=== PATIENT | male | born 2000 | race African-American/Black ===

== ENCOUNTER 2022-05-06 18:10 | Emergency (ER) | payer OTHER ==
[~2022-05-06] VITALS: Ht 175.3 cm; Wt 77.7 kg
[2022-05-06] MEDS ORDERED: ceFAZolin SOD 2 GM in IV 1 EA IV ONE (19:10)
[2022-05-06 20:05] LABS: BASO % 0.3 % (0.0-1.0); EOS # 0.2 10^3/uL (0.0-0.5); EOS % 3.8 % (0.0-3.0); HEMATOCRIT 44.7 % (42.0-52.0); HEMOGLOBIN 14.8 g/dl (13.5-17.5); LYMPH # 1.5 10^3/uL (1.5-5.0); LYMPH % 26.1 % (24.0-44.0); MEAN CORPUSCULAR HEMOGLOBIN 33.1 pg (27.0-33.0); MEAN CORPUSCULAR HGB CONC 33.1 g/dl (32.0-36.5); MONO # 0.5 10^3/uL (0.0-0.8); MONO % 8.6 % (2.0-8.0); NEUTROPHILS # 3.6 10^3/uL (1.5-8.5); PLATELET COUNT, AUTOMATED 302 10^3/uL (150-450); RED BLOOD COUNT 4.47 10^6/uL (4.30-6.10); WHITE BLOOD COUNT 5.8 10^3/uL (4.0-10.0)
[2022-05-06 20:24] LABS: ERYTHROCYTE SEDIMENTATION RATE 3 mm/hr (0-15)
[2022-05-06 20:40] LABS: RSV AMPLIFICATION NEGATIVE (NEGATIVE)
[2022-05-06 20:41] LABS: ALBUMIN 4.2 GM/DL (3.2-5.2); ALT/SGPT 33 U/L (12-78); BILIRUBIN,DIRECT 0.2 MG/DL (0.0-0.2); BILIRUBIN,TOTAL 0.6 MG/DL (0.2-1.0); BLOOD UREA NITROGEN 12 MG/DL (7-18); CALCIUM LEVEL 9.5 MG/DL (8.5-10.1); CARBON DIOXIDE LEVEL 30 MEQ/L (21-32); CHLORIDE LEVEL 105 MEQ/L (98-107); CREATININE FOR GFR 1.05 MG/DL (0.70-1.30); GLOMERULAR FILTRATION RATE > 60.0 (>60); GLUCOSE, FASTING 91 MG/DL (70-100); SODIUM LEVEL 140 MEQ/L (136-145); TOTAL PROTEIN 7.4 GM/DL (6.4-8.2)
[2022-05-06] MEDS ORDERED: AMOX875T2 PO (22:05)
[2022-05-06 23:15] VITALS: BP 136/63
== END 2022-05-06 23:19 | disposition home or self-care (01) ==
LOC: M ED 18:10
DX: S60.221A Contusion of right hand, initial encounter (principal); W22.09XA Striking against other stationary object, initial encounter; Y92.009 Unspecified place in unspecified non-institutional (private) residence as the place of occurrence of the external cause
CPT/HCPCS: 73130; 80048; 80076; 83605; 85025; 85652; 86140; 87040; 87070; 87077; 87205; 87631; 96365; 99284; J0690

== ENCOUNTER 2022-05-12 12:23 | Inpatient (IN) | payer OTHER ==
[~2022-05-12] VITALS: Ht 175.3 cm; Wt 77.1 kg
[~2022-05-12 12:23] MED LIST: AMOX875T2 PO
[2022-05-12 18:47] LABS: BASO % 0.4 % (0.0-1.0); EOS # 0.2 10^3/uL (0.0-0.5); EOS % 3.6 % (0.0-3.0); HEMATOCRIT 45.8 % (42.0-52.0); HEMOGLOBIN 15.3 g/dl (13.5-17.5); LYMPH # 1.7 10^3/uL (1.5-5.0); LYMPH % 30.6 % (24.0-44.0); MEAN CORPUSCULAR HEMOGLOBIN 33.7 pg (27.0-33.0); MEAN CORPUSCULAR HGB CONC 33.4 g/dl (32.0-36.5); MEAN CORPUSCULAR VOLUME 100.9 fl (80.0-96.0); MONO # 0.6 10^3/uL (0.0-0.8); MONO % 10.5 % (2.0-8.0); NEUTROPHILS # 3.1 10^3/uL (1.5-8.5); NEUTROPHILS % 54.7 % (36.0-66.0); PLATELET COUNT, AUTOMATED 280 10^3/uL (150-450); RED BLOOD COUNT 4.54 10^6/uL (4.30-6.10); WHITE BLOOD COUNT 5.6 10^3/uL (4.0-10.0)
[2022-05-12 19:14] LABS: ERYTHROCYTE SEDIMENTATION RATE 3 mm/hr (0-15)
[2022-05-12 19:25] LABS: BLOOD UREA NITROGEN 16 MG/DL (7-18); CALCIUM LEVEL 9.3 MG/DL (8.5-10.1); CARBON DIOXIDE LEVEL 31 MEQ/L (21-32); CHLORIDE LEVEL 108 MEQ/L (98-107); CREATININE FOR GFR 1.18 MG/DL (0.70-1.30); GLOMERULAR FILTRATION RATE > 60.0 (>60); GLUCOSE, FASTING 98 MG/DL (70-100); POTASSIUM SERUM 3.7 MEQ/L (3.5-5.1); SODIUM LEVEL 141 MEQ/L (136-145)
[2022-05-12 20:04] LABS: RSV AMPLIFICATION NEGATIVE (NEGATIVE)
[2022-05-12] MEDS ORDERED: BUPIVACAINE HCL 0.25% 10ML VIAL SC ONE (21:15)
[2022-05-12] MEDS ORDERED: LIDOCAINE 1% MDV 20ML VIAL IM ONE (21:15)
[2022-05-12] MEDS ORDERED: ACETAMINOPHEN TAB 650MG DOSE (2X325MG) PO PRN (22:15)
[2022-05-12] MEDS ORDERED: fentaNYL 100 MCG/2 ML INJECTION As Ordered ONE ×2 (22:33→23:23)
[2022-05-12] MEDS ORDERED: MIDAZOLAM INJ 2MG/2ML VIAL (J2250 PER 1MG) As Ordered ONE (22:34)
[2022-05-12] MEDS ORDERED: propofoL 200 MG/20 ML VIAL As Ordered ONE (22:34)
[2022-05-12] MEDS ORDERED: LIDOCAINE 2% 100MG/5ML SDV (FOR ANES.) As Ordered ONE (22:34)
[2022-05-12] MEDS ORDERED: BUPIVACAINE HCL 0.25% 10ML VIAL As Ordered ONE (22:38)
[2022-05-12] MEDS ORDERED: LIDOCAINE 1% MDV 20ML VIAL As Ordered ONE (22:38)
[2022-05-12] MEDS ORDERED: ceFAZolin 2 GM/D5W 50 ML IV BAG (J0690 PER 500MG) As Ordered ONE (22:39)
[2022-05-12] MEDS ORDERED: ONDANSETRON 4MG 2ML VIAL As Ordered ONE (23:10)
[2022-05-12] MEDS ORDERED: dexameTHASONE 4 MG/ML 1ML VIAL (J1100 PER 1MG) As Ordered ONE (23:10)
[2022-05-12] MEDS ORDERED: ACETAMINOPHEN 1000MG 100ML IV BTL (OFIRMEV) (J0131 PER 10MG) As Ordered ONE (23:16)
[2022-05-12] MEDS ORDERED: KETOROLAC 60MG 2ML VIAL As Ordered ONE (23:16)
[2022-05-12] MEDS ORDERED: LABETALOL 100MG/20ML VIAL As Ordered ONE (23:21)
[2022-05-13] VITALS (8 sets, daily range): BP systolic 107–119; BP diastolic 58–77
[2022-05-13] MEDS ORDERED: fentaNYL 100 MCG/2 ML INJECTION IV PRN (00:05)
[2022-05-13] MEDS ORDERED: LR 1,000 ML IV SCH ×2 (00:05→04:05)
[2022-05-13] MEDS ORDERED: ONDANSETRON 4MG 2ML VIAL IV PRN ×2 (00:05→00:20)
[2022-05-13] MEDS ORDERED: oxyCODONE 5MG TAB PO PRN (00:05)
[2022-05-13] MEDS ORDERED: MEPERIDINE INJ 25 MG/ML VIAL (J2175) IV PRN (00:05)
[2022-05-13] MEDS: LR 1,000 ML IV SCH ×2 (00:25→01:35)
[2022-05-13] MEDS: PERCOCET 5MG/325MG TAB PO PRN ×3 (05:31→20:34)
[2022-05-13 05:43] LABS: HEMATOCRIT 41.8 % (42.0-52.0); HEMOGLOBIN 14.3 g/dl (13.5-17.5); MEAN CORPUSCULAR HEMOGLOBIN 34.3 pg (27.0-33.0); MEAN CORPUSCULAR HGB CONC 34.2 g/dl (32.0-36.5); MEAN CORPUSCULAR VOLUME 100.2 fl (80.0-96.0); PLATELET COUNT, AUTOMATED 260 10^3/uL (150-450); RED BLOOD COUNT 4.17 10^6/uL (4.30-6.10)
[2022-05-13 06:03] LABS: ERYTHROCYTE SEDIMENTATION RATE 4 mm/hr (0-15)
[2022-05-13 06:27] LABS: BLOOD UREA NITROGEN 15 MG/DL (7-18); CALCIUM LEVEL 8.9 MG/DL (8.5-10.1); CARBON DIOXIDE LEVEL 25 MEQ/L (21-32); CHLORIDE LEVEL 107 MEQ/L (98-107); CREATININE FOR GFR 1.02 MG/DL (0.70-1.30); GLOMERULAR FILTRATION RATE > 60.0 (>60); GLUCOSE, FASTING 159 MG/DL (70-100); POTASSIUM SERUM 4.6 MEQ/L (3.5-5.1); SODIUM LEVEL 135 MEQ/L (136-145)
[2022-05-13] MEDS ORDERED: ceFAZolin SOD 2 GM in IV 1 EA IV SCH (07:00)
[2022-05-13] MEDS ORDERED: BACI1CAP PO (07:59)
[2022-05-13] MEDS ORDERED: CEPH500T PO ×2 (07:59→08:25)
[2022-05-13] MEDS ORDERED: KETOROLAC 30 MG/ML 1ML VIAL IV ONE (09:00)
[2022-05-13] MEDS ORDERED: PERCOCET PO (11:05)
[2022-05-13] MEDS: ceFAZolin SOD 2 GM in IV 1 EA IV SCH ×2 (15:03→20:33)
== END 2022-05-13 22:00 | disposition home or self-care (01) | DRG 514 ==
LOC: M ED 12:23 → M ED INP 22:10 → ENRESERV 23:58 → CANRESERV 23:58 → M MSPAV 05-13 00:36
PROVIDERS: ADMIT Internal Medicine; ATTEND General Practice
PROC: 0LQ70ZZ Repair Right Hand Tendon, Open Approach (ICD-10-PCS; principal; 2022-05-12 21:42)
DX: M00.9 Pyogenic arthritis, unspecified (principal); L03.011 Cellulitis of right finger; G47.00 Insomnia, unspecified; F41.9 Anxiety disorder, unspecified; Z79.2 Long term (current) use of antibiotics; Z79.899 Other long term (current) drug therapy; F17.210 Nicotine dependence, cigarettes, uncomplicated; Z20.822 Contact with and (suspected) exposure to COVID-19; Z71.6 Tobacco abuse counseling